=== PATIENT | female | born 1980 | race Caucasian/White ===

== ENCOUNTER 2018-08-03 15:31 | Emergency (ER) | payer OTHER ==
[2018-08-03 16:37] LABS: PLATELET COUNT 299 10^3/uL (150-400)
--- NOTE | 2018-08-03 16:37 | EDPHY ---
H & P Stated Complaint: spotting and cramping. 6 wks preg Time Seen by Provider: 08/03/18 16:22 HPI/ROS: CHIEF COMPLAINT: Vaginal bleeding and cramping HISTORY OF PRESENT ILLNESS: 38-year-old female TAB1, 6 weeks by dates, presents with vaginal bleeding and cramping. Onset of a brownish discharge 2 days ago, spotting since then. Associated with mild suprapubic cramping. Intermittent vomiting throughout this , last vomited yesterday evening. No trauma, dizziness or prior ectopic . REVIEW OF SYSTEMS: complete 10 point ROS reviewed and is negative except for the noted elements in the HPI - Personal History LMP (Females 10-55): Current Tetanus/Diphtheria Vaccine: Yes Current Tetanus Diphtheria and Acellular Pertussis (TDAP): Yes - Medical/Surgical History Hx Asthma: No Hx Chronic Respiratory Disease: No Hx Diabetes: No Hx Cardiac Disease: No Hx Renal Disease: No Hx Cirrhosis: No Hx Alcoholism: No Hx HIV/AIDS: No Hx Splenectomy or Spleen Trauma: No Other PMH: hypothyroid, jose's, - Social History Smoking Status: Never smoked Additional Social History: - Physical Exam Exam: General Appearance: Alert, pleasant Eyes: Pupils equal and round, no conjunctival pallor ENT, Mouth: Mucous membranes moist Neck: Normal inspection Respiratory: Lungs are clear to auscultation Cardiovascular: Regular rate and rhythm Gastrointestinal: Abdomen is soft and nontender Neurological: A&O, nonfocal, normal gait Skin: Warm and dry, no rash Extremities: Normal inspection Psychiatric: Mood and affect normal Constitutional: Initial Vital Signs Temperature (C) 36.9 C 08/03/18 15:39 Heart Rate 73 08/03/18 15:39 Respiratory Rate 16 08/03/18 15:39 Blood Pressure 121/64 H 08/03/18 15:39 O2 Sat (%) 97 08/03/18 15:39 O2 Delivery Mode Room Air Allergies/Adverse Reactions: Penicillins Allergy (Verified 08/03/18 15:39) Home Medications: Medication Instructions Recorded Levothyroxine 08/03/18 08/03/18 Medical Decision Making - Diagnostics Imaging Results: Obstetrics Ultrasound 08/03/18 16:23 Impression: 1. Intrauterine with estimated gestational age at 6 weeks 1 day. At a heart rate of 105 beats per minute, which is low, this might be not amenable to viability in the long run. 2. Subjacent subchorionic hemorrhage that grew in size during the scan. 3. Intramuscular or intramural second mass that has the appearance of a decidual reaction around a central hypoechogenic portion. This looks like a second implantation within the muscle of the uterus. No tone or pole or gestational sac. Differential also includes intramuscular mass of another etiology. Bicornuate uterus with second implantation is thought to be less likely. 4. Two right paraovarian cysts, one is complex, one is simple, as above described. Findings and recommendations discussed with Dr. Astrid Dykes at 1737 hour, . Final report concurs with initial preliminary interpretation. Imaging: Discussed imaging studies w/ fisher swordfish Radiologist ED Course/Re-evaluation: This pt presents with vaginal bleeding and cramping in early . Quant BHCG is higher than expected for 6 wk EGA and pelvic sono reveals an IUP with low HR (105) and a possible hematoma vs ectopic in the myometrium. Results d/w pt, not IVF, abd remains soft and NT. Has appt with [facility] for visit, will consult [facility]. Consulted Dr. Carrizales, including lab/sono results. Will f/u in the am. Ectopic precautions given to pt. Differential Diagnosis: includes though not limited to IUP, miscarriage, ectopic , twin - Data Points Laboratory Results: Laboratory Results 08/03/18 16:25 08/03/18 16:25 Departure - Departure Disposition: Home, Routine, Self-Care Clinical Impression: Threatened miscarriage Condition: Good Instructions: Threatened Miscarriage (ED) Additional Instructions: Your ultrasound shows an intrauterine at 6 weeks 1 day gestation. You also have an area in the muscle of the uterus that may be a blood collection or less likely, an ectopic . You will need close people greeter followup and a repeat quantitative BHCG in 2 days. Return for severe pelvic pain, dizziness, fainting or any concerns. Referrals: Antonietta Henry MD [Primary Care Provider] - As per Instructions Rafi Quesada MD [Medical Doctor] - As per Instructions (Call [facility] in the morning. Tell them that you were seen in the emergency department and that you need to follow up with Dr. Quesada in the morning. I spoke with the print production associate stave jointer, Dr. Carrizales.)
[2018-08-03 18:51] VITALS: BP 138/75
== END 2018-08-03 19:15 | disposition home or self-care (01) ==
DX: O26.851 Spotting complicating pregnancy, first trimester (principal); Z3A.01 Less than 8 weeks gestation of pregnancy; E06.3 Autoimmune thyroiditis; E03.9 Hypothyroidism, unspecified

== ENCOUNTER → 2018-09-19 | Outpatient (CLI) | payer BC | LOC: FIMAGING 13:48 | PROVIDERS: ATTEND Obstetrics & Gynecology | DX: O09.521 Supervision of elderly multigravida, first trimester (principal); Z3A.12 12 weeks gestation of pregnancy; Z87.798 Personal history of other (corrected) congenital malformations ==

== ENCOUNTER → 2018-10-31 | Outpatient (CLI) | payer BC | LOC: FIMAGING 11:15 | PROVIDERS: ATTEND Hospitalist | DX: Z31.89 Encounter for other procreative management (principal) ==